=== PATIENT | male | born 1975 ===

== ENCOUNTER 2018-04-20 03:55 | Emergency (ER) | payer SELFPAY ==
[2018-04-20 04:04] VITALS: O2SAT 99
[2018-04-20 04:40] LABS: BASO # 0.1 K/uL (0.0-0.2); BASO % 0.7 % (0.0-2.0); EOS # 0.1 K/uL (0.0-0.7); EOS % 0.9 % (0.0-4.0); HEMOGLOBIN 15.9 g/dL (12.0-18.0); LYMPH # 2.8 K/uL (1.0-4.3); LYMPH % 29.3 % (20.0-40.0); MEAN CORPUSCULAR HEMOGLOBIN 30.3 pg (27.0-31.0); MEAN CORPUSCULAR HGB CONC 32.6 g/dL (33.0-37.0); MEAN PLATELET VOLUME 9.2 fL (7.2-11.7); MONO # 0.9 K/uL (0.0-0.8); MONO % 9.8 % (0.0-10.0); NEUT # 5.6 K/uL (1.8-7.0); NEUT % 59.3 % (50.0-75.0); NRBC % 0.1 % (0.0-2.0); RBC 5.24 Mil/uL (4.40-5.90); RED CELL DISTRIBUTION WIDTH 13.4 % (11.5-14.5); WHITE BLOOD COUNT 9.5 K/uL (4.8-10.8)
[2018-04-20 04:44] LABS: SQUAMOUS EPITHIAL 1 /hpf (0-5); URINE BILIRUBIN NEGATIVE (NEGATIVE); URINE BLOOD 2+ (NEGATIVE); URINE CALCIUM OXALATE CRYSTALS FEW /hpf (<OCC); URINE CLARITY Hazy (Clear); URINE COLOR Yellow (YELLOW); URINE GLUCOSE (UA) NORMAL (Normal); URINE LEUKOCYTE ESTERASE NEG Leu/uL (Negative); URINE PROTEIN NEGATIVE (NEGATIVE)
[2018-04-20 04:50] LABS: ALB/GLOB RATIO 1.4 (1.0-2.1); ALBUMIN 4.8 g/dL (3.5-5.0); ALT/SGPT 79 U/L (21-72); AST/SGOT 45 U/L (17-59); BLOOD UREA NITROGEN 20 mg/dL (9-20); CALCIUM 9.6 mg/dl (8.6-10.4); GFR NON-AFRICAN AMERICAN > 60; LIPASE 207 U/L (23-300)
--- NOTE | 2018-04-20 06:26 | C.PDOC ---
History Of Present Illness patient reports awaking tonight with rlq pain that radiates into his back. he also admits to urinary hesitancy. he states he vomited once. he denies fever, chills, chest pain or sob. Time Seen by Provider: 04/20/18 04:27 Chief Complaint (Nursing): Abdominal Pain Past Medical History Vital Signs: Last Vital Signs Temp 97.4 F L 04/20/18 04:01 Pulse 67 04/20/18 04:01 Resp 20 04/20/18 04:01 BP 138/90 04/20/18 04:01 Pulse Ox 99 04/20/18 04:01 - Medical History PMH: Asthma, Emphysema Family History: States: Unknown Family Hx - Social History Hx Tobacco Use: Yes Hx Alcohol Use: Yes Hx Substance Use: No - Immunization History Hx Tetanus Toxoid Vaccination: No Hx Influenza Vaccination: No Hx Pneumococcal Vaccination: No Review Of Systems Constitutional: Negative for: Fever, Chills Cardiovascular: Negative for: Chest Pain Respiratory: Negative for: Shortness of Breath Gastrointestinal: Positive for: Nausea, Vomiting. Negative for: Diarrhea, Constipation Genitourinary: Negative for: Dysuria, Hematuria Skin: Negative for: Rash Physical Exam - Physical Exam Appears: Non-toxic, In Acute Distress Skin: Normal Color Head: Atraumatic, Normacephalic Oral Mucosa: Moist Lips: Normal Appearing Neck: Normal ROM Chest: Symmetrical Cardiovascular: Rhythm Regular Respiratory: Normal Breath Sounds Gastrointestinal/Abdominal: Tenderness (RLQ, no guarding or rebound) Back: No CVA Tenderness Pulses: Left Radial: Normal, Right Radial: Normal Neurological/Psych: Oriented x3, Normal Speech ED Course And Treatment - Laboratory Results Result Diagrams: 04/20/18 04:35 04/20/18 04:35 Lab Results: Total Bilirubin 0.7 mg/dL (0.2-1.3) 04/20/18 04:35 AST 45 U/L (17-59) 04/20/18 04:35 ALT 79 U/L (21-72) H 04/20/18 04:35 Alkaline Phosphatase 92 U/L (38-126) 04/20/18 04:35 Total Protein 8.2 g/dL (6.3-8.3) 04/20/18 04:35 Albumin 4.8 g/dL (3.5-5.0) 04/20/18 04:35 Globulin 3.4 gm/dL (2.2-3.9) 04/20/18 04:35 Albumin/Globulin Ratio 1.4 (1.0-2.1) 04/20/18 04:35 Lipase 207 U/L (23-300) 04/20/18 04:35 Urine Color Yellow (YELLOW) 04/20/18 04:35 Urine Clarity Hazy (Clear) 04/20/18 04:35 Urine pH 5.0 (5.0-8.0) 04/20/18 04:35 Ur Specific [place] 1.029 (1.003-1.030) 04/20/18 04:35 Urine Protein Negative mg/dL (NEGATIVE) 04/20/18 04:35 Urine Glucose (UA) Normal mg/dL (Normal) 04/20/18 04:35 Urine Ketones Trace mg/dL (NEGATIVE) 04/20/18 04:35 Urine Blood 2+ (NEGATIVE) H 04/20/18 04:35 Urine Nitrate Negative (NEGATIVE) 04/20/18 04:35 Urine Bilirubin Negative (NEGATIVE) 04/20/18 04:35 Urine Urobilinogen 2.0 mg/dL (0.2-1.0) 04/20/18 04:35 Ur Leukocyte Esterase Neg Sergio/uL (Negative) 04/20/18 04:35 Urine WBC (Auto) 1 /hpf (0-5) 04/20/18 04:35 Urine RBC (Auto) 13 /hpf (0-3) H 04/20/18 04:35 Ur Squamous Epith Cells 1 /hpf (0-5) 04/20/18 04:35 Calcium Oxalate Crystal Few /hpf (<OCC) H 04/20/18 04:35 O2 Sat by Pulse Oximetry: 99 Disposition Counseled Patient/Family Regarding: Studies Performed, Diagnosis, Need For Followup, Rx Given - Disposition Referrals: Amilcar Zendejas Jr., MD [Staff Provider] - Disposition: HOME/ ROUTINE Disposition Time: 06:44 Condition: STABLE Prescriptions: Hydrocodone/Acetaminophen [Vicodin Es 7.5-300 mg Tablet] 1 each PO TID PRN #6 tablet PRN Reason: Pain, Severe (8-10) Ibuprofen [Motrin Tab] 800 mg PO TID PRN #21 tab PRN Reason: Pain, Moderate (4-7) Tamsulosin [Flomax] 0.4 mg PO DAILY #4 cap Instructions: Kidney Stones in Adults, Renal Colic (DC) Forms: [facility] (Ecuadorean), General Discharge Instructions - Clinical Impression Clinical Impression: Renal calculus, right
[2018-04-20 06:28] VITALS: BP 113/67; PULSE 81; RESP 16; TEMP 98
--- NOTE | 2018-04-20 09:28 | CT ---
Date of service: 04/20/2018 PROCEDURE: CT Abdomen and Pelvis without intravenous contrast HISTORY: renal stone COMPARISON: None. TECHNIQUE: Multiple contiguous axial images were performed through the abdomen and pelvis without the use of intravenous contrast. Subsequently, sagittal and coronal reformatted images were obtained. Radiation dose: Total exam DLP = 965.51 mGy-cm. This CT exam was performed using one or more of the following dose reduction techniques: Automated exposure control, adjustment of the mA and/or kV according to patient size, and/or use of iterative reconstruction technique. FINDINGS: LOWER THORAX: Unremarkable. LIVER: Mild fatty infiltration of the liver. GALLBLADDER AND BILE DUCTS: Unremarkable. PANCREAS: Unremarkable. No gross lesion or ductal dilatation. SPLEEN: Unremarkable. ADRENALS: Unremarkable. No mass. KIDNEYS AND URETERS: 2 millimeter obstructing calculus seen at the right ureterovesicular junction with associated mild right hydroureteronephrosis. Left Kidney grossly preserved. VASCULATURE: Unremarkable. No aortic aneurysm. Aortic atherosclerotic calcification or mural plaque present. BOWEL: Focal areas of underdistention and or thickening with a fatty halo seen throughout the colon including the ascending colon, transverse colon, distal descending colon, and rectum. Clinical correlation. Colonic diverticulosis. APPENDIX: Mild nonspecific mucosal thickening of the appendix best seen on series 3 images 114 through 132, clinical correlation. PERITONEUM: Unremarkable. No free fluid. No free air. LYMPH NODES: Unremarkable. No enlarged lymph nodes. BLADDER: 2 millimeter obstructing calculus at the right ureterovesicular junction. REPRODUCTIVE: Prostatomegaly. Scattered prostatic calcifications. BONES: Degenerative changes in the spine. OTHER FINDINGS: None. IMPRESSION: Mild right renal hydroureteronephrosis with obstructing calculus measuring 2 millimeters at the right ureterovesicular junction. Clinical correlation. Focal areas of colonic thickening and/or underdistention with a fatty halo seen throughout the colon as described above as well as at the level of the appendix. This is of uncertain clinical etiology. This may be related to underlying inflammatory bowel disease versus obesity related condition versus additional etiology. Clinical correlation. Additional findings as above. A preliminary report was generated at 6:27 a.m. on 04/20/[address] Kia Lr from [facility]. This case was placed in the PA review folder.
== END 2018-04-20 06:53 | disposition home or self-care (01) ==
LOC: C.ER 03:55
DX: N13.2 Hydronephrosis with renal and ureteral calculous obstruction (principal)
CPT/HCPCS: 74176; 80053; 81001; 83690; 85025; 96374; 99285; J1885